=== PATIENT | male | born 1980 ===

== ENCOUNTER 2019-06-27 06:42 | Day surgery (SDC) | payer OTHER ==
[2019-06-27] MEDS ORDERED: PROPOFOL 500 MG/50 ML EMU IV ONE (07:28)
[2019-06-27] MEDS ORDERED: FENTANYL 100MCG/2ML SOL ONE ×2 (07:28→08:16)
[2019-06-27] MEDS ORDERED: LIDOCAINE HCL 1% MPF 30 SOL ONE (07:28)
[2019-06-27] MEDS: BUPIVACAINE/EPI 0.5% 10 ML SOL INFIL ONE ×3 (08:32→08:43)
[2019-06-27 09:26] VITALS: RESP 16
[2019-06-27 09:32] VITALS: BP 121/72; PULSE 76; TEMP 97; O2SAT 100
== END 2019-06-27 09:48 | disposition home or self-care (01) | DRG 607 ==
LOC: SURG 06:42
PROVIDERS: ATTEND Surgery
DX: D23.4 Other benign neoplasm of skin of scalp and neck (principal)
CPT/HCPCS: 99001; G0168; J3010; J2001; J2704